=== PATIENT | male | born 2000 ===

== ENCOUNTER 2023-12-29 16:44 | Outpatient (REF) | payer BC, SELFPAY | END 2023-12-29 16:45 | disposition home or self-care (01) | LOC: LBN 16:44 | PROVIDERS: PCP Pediatrics; Visit Provider Physician Assistant Medical | DX: J02.9 Acute pharyngitis, unspecified (principal) | CPT/HCPCS: 87070 ==

== ENCOUNTER 2025-04-13 17:25 | Outpatient (REF) | payer BC, SELFPAY | END 2025-04-13 17:26 | disposition home or self-care (01) | LOC: LBN 17:25 | PROVIDERS: PCP Pediatrics; Visit Provider Nurse Practitioner Family | DX: N30.01 Acute cystitis with hematuria (principal) | CPT/HCPCS: 87077; 87086; 87186 ==